=== PATIENT | male | born 1950 | race African-American/Black ===

== ENCOUNTER 2017-03-02 10:45 | Emergency (ER) | payer BC, OTHER ==
[~2017-03-02] VITALS: Ht 172.7 cm; Wt 97.5 kg
[~2017-03-02 10:45] MED LIST: AUGMENTIN 875-1 EACH PO; BACTRIM DS TAB1 EACH PO; FLOMAX0.4 MG PO; NORVASC10 MG PO
[2017-03-02] MEDS ORDERED: HYZAAR 100-251 EACH PO (11:39)
[2017-03-02] MEDS ORDERED: ZESTRIL10 MG PO (11:39)
[2017-03-02] MEDS ORDERED: IBUPROFEN 600600 M1 PO (12:44)
[2017-03-02] MEDS ORDERED: TIZANIDINE HCL4 MG PO (12:44)
== END 2017-03-02 12:58 | disposition home or self-care (01) ==
LOC: ER 10:45
DX: S29.011A Strain of muscle and tendon of front wall of thorax, initial encounter (principal); I10 Essential (primary) hypertension; X58.XXXA Exposure to other specified factors, initial encounter; Y93.89 Activity, other specified; Y92.89 Other specified places as the place of occurrence of the external cause; Y99.8 Other external cause status